=== PATIENT | female | born 1965 | race Caucasian/White ===

== ENCOUNTER 2019-11-06 09:44 | Outpatient (CLI) | payer OTHER ==
[2019-11-06] MEDS ORDERED: Iopamidol 370 76% 100 ML VIAL ONE (13:26)
--- NOTE | 2019-11-06 14:54 | CT ---
CT NECK WITH AND WITHOUT CONTRAST: (Parathyroid protocol) DATE: 11/06/2019 HISTORY: [id number] with hyperparathyroidism. TECHNIQUE: Precontrast scan, 25 seconds postcontrast scan, and 65 second postcontrast scan, from several centime ters inferior to the kian to the skull base. Coronal and sagittal reconstructions. FINDINGS: (Axial images 56 of 82, series 2; 27 of 164, series 3; 27 of 82, series 5; sagittal images 03/05/2000 180, series 602; 100 of 180, series 605; coronal images 50 03/05/1937 series 601; 52 of 139 series 604): There is a 1.3 x 0.6 x 0.8 cm enhancing nodule abutting the posterior surface of the upper pole of th e left lobe of the thyroid gland, abutting the cricopharyngeus musculature, and abutting the left longus colli muscle. It has no intrinsic iodine, and is a very good candidate for parathyroid adenoma . There is an area of moderately low attenuation directly caudal to that, representing thyroid tissue, perhaps a thyroid nodule, which should not be mistaken for parathyroid adenoma. There is fusiform dilation of the ascending aorta to at least 4.1 cm.. The proximal portion of the as cending aorta was not included on the images. IMPRESSION: 1) very good candidate for parathyroid adenoma abutting the posterior aspect of the upper pole of the left lobe of the thyroid gland. 2) fusiform ectasia of ascending aorta to at least 4.1 cm
--- NOTE | 2019-11-06 15:01 | NM ---
Nuclear medicine parathyroid SPECT and scintigraphy: DATE: 11/06/2019 HISTORY: 54-year-old Female with hyperparathyroidism TECHNIQUE: IV injection of 26.6 mCi [id number] sestamibi. 3 view scintigraphic images of upper chest, neck, and head, immediately, at one hour, and 2 hours. SPECT in 3 planes from upper chest to skull base. Noncontrast CT from upper chest to skull base. SPECT-CT fusion. FINDINGS: Abutting the posterior surface of the upper pole of the left lobe of the thyroid gland, lateral surfa ce of cricopharyngeus muscle, and anterior surface of the left longus coli muscle, at approximately C6-7 level, there is a non iodine containing small nodule on the localizing noncontrast CT images. Be cause there is such strong uptake in the left and right lobes of the thyroid gland, it is difficult to appreciate the increased uptake in this nodule on the SPECT CT fusion images. The plantar scintigr aphic images demonstrate a subtle finding of asymmetrically slightly greater uptake in this location on the left anterior oblique view. This is difficult to visualize on the other views because of its overlap thyroid tissue, but the degree of uptake at the upper pole is greater than that on the right as seen on the anterior view. The CT findings aren't compelling enough for parathyroid cherise elie.. IMPRESSION: Good candidate for parathyroid adenoma abutting the upper pole of the left lobe of the thyroid gland.
== END 2019-11-06 09:45 | disposition home or self-care (01) ==
LOC: CT 09:44
PROVIDERS: ATTEND Otolaryngology Plastic Surgery within the Head & Neck
DX: E21.0 Primary hyperparathyroidism (principal); I77.810 Thoracic aortic ectasia
CPT/HCPCS: 70492; 78072; A9500; Q9967

== ENCOUNTER 2020-09-24 08:17 | Outpatient (CLI) | payer BC, OTHER | END 2020-09-24 08:18 | disposition home or self-care (01) | LOC: BICMAMMO 08:17 | PROVIDERS: ATTEND Physician Assistant | DX: Z13.820 Encounter for screening for osteoporosis (principal) | CPT/HCPCS: 77080 ==

== ENCOUNTER 2025-01-20 09:17 | Outpatient (CLI) | payer BC | END 2025-01-20 09:18 | disposition home or self-care (01) | LOC: BICMAMMO 09:17 | PROVIDERS: ATTEND Family Medicine | DX: Z13.820 Encounter for screening for osteoporosis (principal); Z78.0 Asymptomatic menopausal state | CPT/HCPCS: 77080 ==